=== PATIENT | male | born 1960 | race Caucasian/White ===

== ENCOUNTER → 2023-09-28 15:16 | Outpatient (BNVA) | payer OTHER, SELFPAY | PROVIDERS: PCP Family Medicine Adult Medicine; Visit Provider Family Medicine Adult Medicine | DX: R22.31 Localized swelling, mass and lump, right upper limb (principal) | CPT/HCPCS: 88305 ==

== ENCOUNTER 2024-01-31 06:20 | Outpatient (CLI) | payer OTHER, SELFPAY ==
--- NOTE | 2024-01-31 06:30 | US_ITS ---
WS: [id number] ULTRASOUND ABDOMEN CLINICAL INFORMATION: possible left inguinal hernia COMPARISON: None. FINDINGS: LEFT groin hernia with peristalsis and suspected herniated bowel. Recommend clinical correl ation. This could be further evaluated with contrast-enhanced CT abdomen pelvis. Liver Size: Normal. Craniocaudal length: 14.0 cm. Echogenicity: Normal. Surface nodularity: None. Mass (size and location): None. Bile ducts Intrahepatic ducts: Normal. Common bile duct diameter: 0.6 cm. Gallbladder Cholelithiasis Gallstones: Present Gallbladder sludge: None. Gallbladder wall thickening: None. Pericholecystic fluid: None. Sonographic [place] sign: Absent. Pancreas Normal as visualized. Spleen Splenomegaly: None. Craniocaudal length: 9.7 cm. Right kidney: Normal. Hydronephrosis: None. Size: 10.8 cm x 4.9 cm x 4.6 cm Left kidney: Normal. Hydronephrosis: None. Size: 10.6 cm x 4.9 cm x 4.3 cm. Abdominal aorta and IVC Visualized portions are normal. Ascites: None. US/US abdomen complete* [id number] IMPRESSION: 1. Cholelithiasis. No gallbladder wall thickening or pericholecystic fluid. 2. LEFT groin hernia visualized peristalsis with suspected herniated loop of b owel. Recommend clinical correlation. This could be further evaluated with cont rast-enhanced CT abdomen pelvis. 3. No other acute findings.
== END 2024-01-31 06:21 | disposition home or self-care (01) ==
PROVIDERS: PCP Family Medicine Adult Medicine
DX: K40.90 Unilateral inguinal hernia, without obstruction or gangrene, not specified as recurrent (principal); K80.20 Calculus of gallbladder without cholecystitis without obstruction
CPT/HCPCS: 76700

== ENCOUNTER 2024-03-24 05:58 | Day surgery (SDC) | payer OTHER, SELFPAY ==
[2024-03-24] VITALS (12 sets, daily range): BP systolic 99–118; BP diastolic 64–84; PULSE 62–87; RESP 1–18; TEMP 36.5–37.1; O2SAT 91–99
--- NOTE | 2024-03-24 05:51 | W.PM.OPSFHP ---
Same Day Surgery H&P Indication for Procedure/HPI DATE OF PROCEDURE: March 24, 2024 CHIEF COMPLAINT/INDICATIONFOR SURGICAL PROCEDURE: left groin hernia PREOP DIAGNOSIS: left inguinal hernia PLANNED PROCEDURE: Operation Date: 03/24/24 07:00 Proposed Procedures p Laparoscopic Inguinal Hernia Repair W/ Mesh- 90922, k40.90(Left) - William Moreno MD Medications/Allergies* Home Medications Medication Instructions Recorded Confirmed Type aspirin 325 mg tablet 325 mg PO DAILY 02/13/24 03/20/24 History acetaminophen 500 mg tablet 1,000 mg PO BID PRN julio n 03/20/24 03/20/24 History Allergies/Adverse Reactions Allergy/AdvReac Type Severity Reaction Status Date / Time hydrocodone Allergy ALGY-Rash Verified 02/13/24 08:44 Pertinent History/Comorbid Conditions* Medical History (Updated 12/17/23 @ 07:21 by Priyanka Handy NP) Left inguinal hernia Mass of left inguinal region 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, and full excision 09/28/2023 Nodule of skin of right hand excision 09/28/2023 Colon cancer screening Smoker Started age 16 History of pneumothorax Pneumothorax x 4 with his last in 1984 Muscle pain COPD (chronic obstructive pulmonary disease) with emphysema Surgical History (Updated 08/06/23 @ 14:14 by Hermes Emanuel MD) H/O spinal fusion L5-S1 in 2013 Family History (Updated 08/03/23 @ 10:23 by Taya Loja LPN) Father Mother Brain tumor Father HHT (hereditary hemorrhagic telangiectasia) Mother Social History Smoking and tobacco/nicotine status: current every day tobacco/nicotine user Quit status (tobacco/nicotine): considering quitting Alcohol intake: current Alcohol intake frequency: holidays/special occasions only Alcohol type: hard liquor Substance/Drug Use: current Substance/Drug use frequency: Special occassions/opportunity only Pertinent Exam Findings alert, oriented x 3, clear to auscultation bilaterally, regular rate & rhythm and operative site marked Recommendations Surgery/Procedure today Coding Level of Care Code Acute Code for Chg Fwd
--- NOTE | 2024-03-24 06:12 | P.ANESASSM_ITS ---
Pre-Anesthetic Assessment Height/Weight: Height 5 ft 9 in Preop Diagnosis: Left inguinal hernia Operation Date: 03/24/24 07:00 Proposed Procedures p Laparoscopic Inguinal Hernia Repair W/ Mesh- 91710, k40.90(Left) - William Moreno MD Was Beta Loni taken within 24 hours: N/A Was Clonidine taken within 24 hours: N/A Social Tobacco and No alcohol Exam alert, oriented x 3, clear to auscultation bilaterally and regular rate & rhythm Airway Submandibular: within normal limits Cervical ROM: within normal limits Mallampati: Class III Dentition: full Comments: Comments: Multiple missing teeth, denies any loose Anesthetic Plan ASA status: 2 Anesthesia: General Other: No prior issues with anesthesia NPO since yesterday Current smoker, COPD. States this is controlled with inhalers Denies any cardiac issues METs greater than 4 Plan for GETA with possible postop nerve block Medications/Allergies Home Medications Medication Instructions Recorded Confirmed Last Taken Type cyclobenzaprine 10 mg tablet 10 mg PO TID PRN muscle spasm #30 08/03/23 03/20/24 Unknown Rx tabs aspirin 325 mg tablet 325 mg PO DAILY 02/13/24 03/20/24 03/17/24 History acetaminophen 500 mg tablet 1,000 mg PO BID PRN julio n 03/20/24 03/20/24 03/20/24 History umeclidinium 62.5 mcg-vilanterol See Rx Instructions .Route 03/20/24 03/24/24 03/24/24 Rx 25 mcg/actuation powdr for .COMPLEX #120 blisters inhalation (Anoro Ellipta) Allergies Allergy/AdvReac Type Severity Reaction Status Date / Time hydrocodone Allergy ALGY-Rash Verified 02/13/24 08:44 [facility] Anesthesia Medical History Left inguinal hernia Mass of left inguinal region 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, and full excision 09/28/2023 Nodule of skin of right hand excision 09/28/2023 Colon cancer screening Smoker Started age 16 History of pneumothorax Pneumothorax x 4 with his last in 1984 Muscle pain COPD (chronic obstructive pulmonary disease) with emphysema Surgical History (Updated 02/13/24 @ 08:48 by JUSTIN Castro) H/O spinal fusion L5-S1 in 2014 Family History Father Brain tumor Mother HHT (hereditary hemorrhagic telangiectasia) Social History Smoking and tobacco/nicotine status: current every day tobacco/nicotine user Quit status (tobacco/nicotine): considering quitting Alcohol intake: current Alcohol intake frequency: holidays/special occasions only Alcohol type: hard liquor Substance/Drug Use: current Substance/Drug use frequency: Special occassions/opportunity only Data Anesthesia Cardiac Studies: No Data to Display
[2024-03-24] MEDS: sodium chloride 0.9% 1,000 ML 30 ML IV (06:15)
[2024-03-24] MEDS: ceFAZolin 2,000 mg SDV 2000 MG IVP (07:00)
[2024-03-24] MEDS: BUPivacaine 0.25% INJ 10 mL INJECTION (07:46)
[2024-03-24] MEDS: lidocaine-epi 1% 20 mL INJ 10 ML INJECTION (07:46)
--- NOTE | 2024-03-24 09:02 | P.OP_ITS ---
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 Procedure: Patient was brought into the OR, he was placed in the supine position. General anesthesia was given. The abdomen was prepped and draped in the usual sterile fashion. A timeout was conducted. I then proceeded to li the left groin anatomic landmarks, a 1.5 cm infraumbilical incision was then made and the incision was carried down all the way down to the anterior rectus sheath fascia, the fascia was then opened with electrocautery and the rectus muscle was retracted laterally revealing the retrorectus space. I then carefully advanced the Spacemaker into the retrorectus space to the level of the pubic bone. Under direct visualization proceeded to open the balloon creating the preperitoneal space. The balloon was then removed insufflation was started and the camera was inserted, at this point and noted that there was very a small space to work and after further examination it was noticed that the large peritoneal tear on the right side has been created. Due to this finding I decided that the best option will be to convert the procedure to open and terminate the laparoscopic portion of this procedure. I proceeded to desufflate under direct visualization there was no evidence of bleeding and the peritoneal flap was approximated completely. I then remove the trocar and proceeded to close the wound in layers using #0 Vicryl for the anterior rectus sheath #3-0 Vicryl for the subcutaneous tissue #4 Monocryl for the skin. I then placed my attention to the left groin, I made a 5 cm incision from the area overlying the superficial inguinal ring to the area overlying the deep inguinal ring. The incision was deepened into the subcutaneous tissue, Prudence's fascia was opened and aponeurosis of the external oblique was exposed. I make a small torey with a 15 blade in the aponeurosis of the external oblique and then with a Metzenbaum proceeded to open the aponeurosis taking careful consideration of injuring any nerve structures. The 2 flaps of the external oblique aponeurosis were held with the straight clamps I then proceeded to circumferentially dissect the spermatic cord with blunt dissection. I then passed a [place] around the cord to allow for retraction. After I did this it was evident that the patient had a direct hernia with fat protruding through the defect of the floor of the inguinal canal. I proceeded to reduce the properitoneal fat and then approximated the floor of the canal using #2-0 Prolene. This was done taking careful consideration of not injuring any deeper structures. I then proceeded to open the cremaster muscle in a longitudinal fashion, I then individualize the cord structures and verified that there was no evidence of any indirect defect or sac. I then proceeded to place precut mesh in the left groin overlying the floor of the canal, the tails of the mesh were used to encircle the spermatic cord recreating the internal ring. I then proceeded to fix the mesh using #2-0 Prolene. I fixating the medial direction to the pubic tubercle, in the inferior direction to the shelving edge of the inguinal ligament, and the superior direction to the conjoined tendon and in the lateral direction the tails were joined together to recreate the internal ring. The mesh was laying flat on the floor of the canal by the end of the fixation, there was hemostasis that was verified. During the procedure the ilioinguinal , iliohypogastric and genital branch of the genitofemoral nerves were preserved. The aponeurosis of the external oblique was then closed using #2 Vicryl taking careful consideration of not injuring the underlying structures and leavingfor the cord structures recreating the external ring. Hemostasis was verified once again, 20 cc of local anesthesia was then infiltrated in the subcutaneous tissue and in the dermis. The wound was then closed in layers using #3-0 Vicryl for the Prudence's fascia and subcutaneous tissue and #4 Monocryl for the skin. Dermabond was applied in all the wounds. At the end of the procedure all counts were correct, the patient tolerated well the procedure was transferred to PACU in stable condition.
--- NOTE | 2024-03-24 09:40 | ANE.PACU2 ---
Inpatient post-anesthesia follow up: Airway intact: Yes Vital signs: Temperature 98.3 F Pulse Rate 82 Respiratory Rate 1 Blood Pressure 118/68 Pulse Oximetry 95 Oxygen Delivery Me thod Room Air Oxygen Flow Rate 6 Fraction of Inspir ed Oxygen Hydration adequate: Yes Nausea and vomiting: No Pain level: 1 Mental status: Baseline
[2024-03-24] MEDS: oxyCODONE 5 mg IR Tab/Cap PO (10:28)
== END 2024-03-24 11:05 | disposition home or self-care (01) ==
PROVIDERS: Visit Provider Surgery
PROC: (CPT 49650; principal; 2024-03-24 07:00)
PROC: (CPT 49505; 2024-03-24 07:00)
DX: K40.90 Unilateral inguinal hernia, without obstruction or gangrene, not specified as recurrent (principal); Z53.31 Laparoscopic surgical procedure converted to open procedure; J44.9 Chronic obstructive pulmonary disease, unspecified; Z79.82 Long term (current) use of aspirin; F17.200 Nicotine dependence, unspecified, uncomplicated; Z98.1 Arthrodesis status
CPT/HCPCS: 49505; 51702; J0131; J0690; J1100; J2371; J2405; J2704; J3010; J3490; J7030